=== PATIENT | female | born 1990 | race Hispanic/Latino ===

== ENCOUNTER 2016-09-24 10:25 | Emergency (ER) | payer OTHER ==
[~2016-09-24] VITALS: Ht 162.6 cm; Wt 63.5 kg
--- NOTE | 2016-09-24 11:38 | ED THROAT/DENTAL COMPLAINT ---
History of Present Illness General Chief Complaint: Sore Throat, Dental Pain Stated Complaint: LUMP IN LFT SIDE OF THROAT Source: patient Exam Limitations: no limitations Vital Signs & Intake/Output Vital Signs & Intake/Output Vital Signs Date Time Temp Pulse Resp B/P B/P Pulse O2 O2 Flow FiO2 Mean Ox Delivery Rate 09/24 1348 98.0 70 16 118/70 100 Room Air 09/24 1210 Room Air 09/24 1205 98.4 72 17 110/68 99 Room Air 09/24 1041 98.1 82 18 113/75 100 Room Air Allergies Coded Allergies: No Known Allergies (09/24/16) Reconcile Medications Augmentin (Augmentin 500-125 Tablet) 500 MG-125 MG TABLET 1 TAB PO BID PHARYNGITIS Triage Note: PT TO ED FOR L SIDED THROAT PAIN X 2 MONTHS S/P WISDOM TOOTH REMOVAL. REPORTING WORSENING OVER OVER PAST 24 HOURS. DENIES FEVER, COUGH, COLD. Triage Nurses Notes Reviewed? yes : No Patient currently breastfeeds: No HPI: 25F PMH LEFT UPPER WISDOM TOOTH REMOVAL 3 WEEKS AGO PRESENTING WITH LEFT NECK PAIN, TENDERNESS, AND DIFFICULTY SWALLOWING. SYMPTOMS STARTED 2 DAYS AGO AND HAVE WORSENED. SHE FEELS LIKE SHE HAS A PAINFUL LUMP ON THE LEFT SIDE OF HER NECK THAT IS GROWING IN SIZE, AND SINCE YESTERDAY HAS HAD THROAT IRRITATION AND DIFFICULTY SWALLOWING. DENIES FEVER, CHILLS, SINUS PAIN, N/V, NECK STIFFNESS, AMS, EYE PAIN, VISION CHANGES, CHEST PAIN, SOB. Past History Travel History Traveled to [place] past 21 day No Medical History Any Pertinent Medical History? see below for history Neurological: NONE EENT: NONE Cardiovascular: NONE Respiratory: NONE Gastrointestinal: NONE Hepatic: NONE Renal: NONE Musculoskeletal: NONE Psychiatric: NONE Endocrine: NONE Blood Disorders: NONE Cancer(s): NONE Surgical History Surgical History: non-contributory Psychosocial History What is your primary language Qatari Tobacco Use: Never used ETOH Use: occasional use Illicit Drug Use: denies illicit drug use Family History Hx Contributory? No Review of Systems Review of Systems Constitutional: Reports: no symptoms. EENTM: Reports: see HPI. Respiratory: Reports: no symptoms. Cardiovascular: Reports: no symptoms. GI: Reports: no symptoms. Genitourinary: Reports: no symptoms. Musculoskeletal: Reports: no symptoms. Skin: Reports: no symptoms. Neurological/Psychological: Reports: no symptoms. Hematologic/Endocrine: Reports: no symptoms. Immunologic/Allergic: Reports: no symptoms. All Other Systems: Reviewed and Negative Physical Exam Physical Exam General Appearance: well developed/nourished, no apparent distress Head: atraumatic, normal appearance Eyes: Bilateral: normal appearance. Ears: Left: canal normal, Tympanic normal. Nose: normal inspection Mouth/Throat: normal mouth inspection, pharynx normal Neck: lymphadenopathy (L) Cardiovascular/Respiratory: normal breath sounds, regular rate/rhythm, no respiratory distress Neurologic/Psych: no motor/sensory deficits, awake, alert, oriented x 3 Skin: intact, normal color, warm/dry Core Measures ACS in differential dx? No Severe Sepsis Present: No Septic Shock Present: No Progress Differential Diagnosis: aspirated tooth, carious tooth, epiglottitis, Ludwigs angina, meningitis, odontogenic abscess, kip-tonsillar abscess, pharyngeal for. body, stomatitis/gingivitis, strep pharyngitis, tooth fracture Plan of Care: Orders Procedure Date/time Status HUMAN BETA HCG SCREEN 09/24 1142 Complete CBC WITHOUT DIFFERENTIAL 09/24 1137 Complete THROAT CULTURE W/QUICK STREP 09/24 1042 Active Laboratory Tests 09/24/16 1150: Total Beta HCG NEGATIVE, CBC w Diff MAN DIFF ORDERED, RBC 5.20, MCV 67.8 L, MCH 21.0 L, RDW 17.8 H, MPV 8.6, Gran % 60.0, Lymphocytes % 29.4, Monocytes % 8.5, Eosinophils % 1.6, Basophils % 0.5, Absolute Granulocytes 4.2, Absolute Lymphocytes 2.1, Absolute Monocytes 0.6, Absolute Eosinophils 0.1, Absolute Basophils 0, Platelet Estimate VERIFIED BY SMEAR, Polychromasia 1+, Hypochromic- Microcytic 2+, Poikilocytosis 1+, Anisocytosis 1+, Microcytic Cells 2+, Ovalocytes 1+, PUBS MCHC 31.0 L Diagnostic Imaging: Viewed by Me: CT Scan. Discussed w/RAD: CT Scan. Radiology Impression: PATIENT: DEZ MILES PRESENT AGE: 25 PATIENT ACCOUNT NO: [id number] : 89 LOCATION: [facility] ORDERING PHYSICIAN: POP REYNOSO MD SERVICE DATE: 09/24/16 EXAM TYPE : CAT - CT NECK W IV CONTRAST EXAMINATION: CT SOFT TISSUE NECK WITH CONTRAST CLINICAL INFORMATION: Left neck abscess. Mass with tenderness and fever. COMPARISON: None. TECHNIQUE: Following the intravenous administration of 95 mL Optiray 320, helical imaging was performed in the axial plane with generation of coronal and sagittal reformatted images. Imaging of the larynx is obscured by swallowing motion artifact. DLP: 432 mGy-cm. FINDINGS: There is no cervical lymphadenopathy. There are small multilevel lymph nodes in the neck bilaterally. There are no masses or fluid collections. The parotid glands are homogeneous in attenuation. The submandibular glands are normal. No contour abnormality or pathologic enhancement is seen within the oral cavity or pharyngeal mucosal space. Given the limitations of the swallowing motion artifact, the laryngeal structures are normal. The parapharyngeal fat is preserved. There is normal opacification of the vascular structures. No extra mucosal soft tissue mass or fluid collection is seen. No retropharyngeal fluid collection is seen. The thyroid gland is normal. There is a small amount of thymic tissue. The superior mediastinum is otherwise unremarkable. The lung apices are clear. The maxillary sinuses are well-aerated. There is mucoperiosteal thickening in the inferior maxillary sinuses bilaterally. There appears to be a relatively recent extraction socket of the left mandibular third molar tooth, containing a small amount of air. The adjacent soft tissues appear unremarkable. The temporomandibular joints are normal. No periapical disease is identified. There is reversal of the cervical lordosis with a mild dextroscoliosis and there is a levoscoliosis in the upper thoracic spine. The imaged portions of the brain parenchyma are unremarkable. IMPRESSION: 1. There are no masses, fluid collections or evidence of cervical lymphadenopathy. 2. There appear to be sequelae of a recent left mandibular third molar tooth extraction. Correlate with clinical history. DICTATED BY: JUNIOR GARCIA MD DATE/TIME DICTATED:09/24/161332 MANUFACTURING ENGINEERING TECHNICIAN:BIJU DATE/TIME TRANSCRIBED:09/24/161332 CONFIDENTIAL, DO NOT COPY WITHOUT APPROPRIATE AUTHORIZATION. <Electronically signed in Other Vendor System> SIGNED BY: JUNIOR GARCIA MD 09/24/16 1346 Departure Departure Time of Disposition: 1353 Disposition: HOME OR SELF CARE Condition: Stable Clinical Impression Primary Impression: Acute pharyngitis Referrals: GREGG BRYANT,SIGIFREDO Musa (PCP/Family) Additional Instructions: SEE YOUR ORAL SURGEON THIS WEEK IF POSSIBLE. RETURN TO ED IF PAINFUL SWALLOWING , FEVER, CHILLS, NECK STIFFNESS, NAUSEA, VOMITING. Departure Forms: Customer Survey General Discharge Information Prescriptions: Current Visit Scripts Augmentin (Augmentin 500-125 Tablet) 1 TAB PO BID #14 TAB
[2016-09-24 12:08] LABS: ABSOLUTE BASOPHIL COUNT 0 /CUMM (0.0-0.2); ABSOLUTE EOSINOPHIL COUNT 0.1 /CUMM (0.0-0.7); ABSOLUTE GRANULOCYTE CT 4.2 /CUMM (1.4-6.5); ABSOLUTE LYMPH COUNT 2.1 /CUMM (1.2-3.4); ABSOLUTE MONOCYTE COUNT 0.6 /CUMM (0.10-0.60); BASOPHIL % 0.5 % (0.0-2.0); EOSINOPHIL % 1.6 % (0-5); HEMATOCRIT 35.3 % (37-47); MEAN CORPUSCULAR VOLUME 67.8 FL (81.0-99.0); MEAN PLATELET VOLUME 8.6 FL (7.4-10.4); PLATELET COUNT 233 /CUMM (130-400); RBC DISTRIBUTION WIDTH 17.8 % (11.5-14.5); WHITE BLOOD CELL COUNT 7.1 /CUMM (4.8-10.8)
--- NOTE | 2016-09-24 13:46 | CT SCAN REPORT ---
EXAMINATION: CT SOFT TISSUE NECK WITH CONTRAST CLINICAL INFORMATION: Left neck abscess. Mass with tenderness and fever. COMPARISON: None. TECHNIQUE: Following the intravenous administration of 95 mL Optiray 320, helical imaging was performed in the axial plane with generation of coronal and sagittal reformatted images. Imaging of the larynx is obscured by swallowing motion artifact. DLP: 432 mGy-cm. FINDINGS: There is no cervical lymphadenopathy. There are small multilevel lymph nodes in the neck bilaterally. There are no masses or fluid collections. The parotid glands are homogeneous in attenuation. The submandibular glands are normal. No contour abnormality or pathologic enhancement is seen within the oral cavity or pharyngeal mucosal space. Given the limitations of the swallowing motion artifact, the laryngeal structures are normal. The parapharyngeal fat is preserved. There is normal opacification of the vascular structures. No extra mucosal soft tissue mass or fluid collection is seen. No retropharyngeal fluid collection is seen. The thyroid gland is normal. There is a small amount of thymic tissue. The superior mediastinum is otherwise unremarkable. The lung apices are clear. The maxillary sinuses are well-aerated. There is mucoperiosteal thickening in the inferior maxillary sinuses bilaterally. There appears to be a relatively recent extraction socket of the left mandibular third molar tooth, containing a small amount of air. The adjacent soft tissues appear unremarkable. The temporomandibular joints are normal. No periapical disease is identified. There is reversal of the cervical lordosis with a mild dextroscoliosis and there is a levoscoliosis in the upper thoracic spine. The imaged portions of the brain parenchyma are unremarkable. IMPRESSION: 1. There are no masses, fluid collections or evidence of cervical lymphadenopathy. 2. There appear to be sequelae of a recent left mandibular third molar tooth extraction. Correlate with clinical history.
[2016-09-24 13:54] VITALS: BP 137/77
[2016-09-24] MEDS ORDERED: AUGMENTIN 500-1 EACH PO (13:55)
== END 2016-09-24 14:14 ==
LOC: ERH 10:25
PROVIDERS: Internal Medicine
DX: J02.9 Acute pharyngitis, unspecified (principal)